=== PATIENT | female | born 1975 | race Caucasian/White ===

== ENCOUNTER 2024-09-26 05:01 | Day surgery (SDC) | payer BC ==
[2024-09-25 10:11] VITALS: BMI 27.9
[2024-09-26] MEDS: IOHEXOL 180 MG/1 ML ML IJ ONE
[2024-09-26] MEDS: LIDO 2%/EPI 1:200000 PRESRVFRE (20 ML SDVIAL) INF ONE
[2024-09-26] MEDS ORDERED: DEXAMETHASONE SOD PHOSPHATE 10 MG/1 ML VIAL ONE (07:16)
[2024-09-26] MEDS ORDERED: LIDOCAINE HCL/PF 1% SDV 5ML VIAL ONE (07:16)
[2024-09-26 08:51] VITALS: RESP 16
[2024-09-26] MEDS ORDERED: ACETAMINOPHEN 500 MG TABLET (FP) PO PRN (09:10)
[2024-09-26] MEDS: LIDOCAINE HCL 1% PRESERVATIVE FREE - 30ML VIAL IJ ONE ×2 (09:56)
[2024-09-26] MEDS: DEXAMETHASONE SOD PHOSPHATE 10 MG/1 ML VIAL IVPUSH ONE ×2 (09:57)
[2024-09-26 10:41] VITALS: TEMP 97.6
[2024-09-26 13:49] VITALS: BP 125/75; PULSE 92
== END 2024-09-26 10:40 | disposition home or self-care (01) ==
LOC: JASU-SURG 05:01
PROVIDERS: ATTEND Pain Medicine Pain Medicine
PROC: 3E0R3BZ Introduction of Anesthetic Agent into Spinal Canal, Percutaneous Approach (ICD-10-PCS; 2024-09-26)
PROC: 3E0R33Z Introduction of Anti-inflammatory into Spinal Canal, Percutaneous Approach (ICD-10-PCS; principal; 2024-09-26 10:00)
DX: M54.16 Radiculopathy, lumbar region (principal)
CPT/HCPCS: 76000-TC-FY; 81025; J1100

== ENCOUNTER 2024-10-17 04:13 | Day surgery (SDC) | payer BC ==
[2024-10-16 20:16] VITALS: BMI 27.9
[2024-10-17] MEDS ORDERED: BUPIVACAINE HCL/PF 0.5% (5MG/ML) 10 ML VIAL ONE (07:29)
[2024-10-17 15:20] VITALS: RESP 18
[2024-10-17] MEDS: LIDOCAINE HCL 1% PRESERVATIVE FREE - 30ML VIAL NR ONE (17:24)
[2024-10-17] MEDS: IOHEXOL 180 MG/1 ML ML IJ ONE (17:25)
[2024-10-17] MEDS: DEXAMETHASONE SOD PHOSPHATE 10 MG/1 ML VIAL IVPUSH ONE (17:37)
[2024-10-17 18:26] VITALS: BP 137/78; PULSE 96; TEMP 98
== END 2024-10-17 18:00 | disposition home or self-care (01) ==
LOC: JASU-SURG 04:13
PROVIDERS: ATTEND Pain Medicine Pain Medicine
PROC: 3E023BZ Introduction of Anesthetic Agent into Muscle, Percutaneous Approach (ICD-10-PCS; 2024-10-17)
PROC: 3E0233Z Introduction of Anti-inflammatory into Muscle, Percutaneous Approach (ICD-10-PCS; principal; 2024-10-17 17:00)
DX: M47.816 Spondylosis without myelopathy or radiculopathy, lumbar region (principal); M54.16 Radiculopathy, lumbar region; M66.18 Rupture of synovium, other site
CPT/HCPCS: 76000-TC-FY; 81025; J1100

== ENCOUNTER 2024-11-28 04:23 | Day surgery (SDC) | payer BC ==
[2024-11-19 11:46] VITALS: BMI 29.0
[2024-11-28] MEDS ORDERED: MIDAZOLAM HCL 2 MG/2 ML SINGLE DOSE VIAL ONE (10:04)
[2024-11-28 10:52] VITALS: TEMP 98.3
[2024-11-28 11:25] VITALS: RESP 16
[2024-11-28 11:31] VITALS: BP 106/64; PULSE 78
== END 2024-11-28 11:33 | disposition home or self-care (01) ==
LOC: JASU-ENDO 04:23
PROVIDERS: ATTEND Internal Medicine Gastroenterology
PROC: 0DB68ZX Excision of Stomach, Via Natural or Artificial Opening Endoscopic, Diagnostic (ICD-10-PCS; 2024-11-28)
PROC: 0DB78ZX Excision of Stomach, Pylorus, Via Natural or Artificial Opening Endoscopic, Diagnostic (ICD-10-PCS; 2024-11-28)
PROC: 0DJD8ZZ Inspection of Lower Intestinal Tract, Via Natural or Artificial Opening Endoscopic (ICD-10-PCS; principal; 2024-11-28 10:00)
DX: Z12.11 Encounter for screening for malignant neoplasm of colon (principal); K55.20 Angiodysplasia of colon without hemorrhage; K44.9 Diaphragmatic hernia without obstruction or gangrene; K29.50 Unspecified chronic gastritis without bleeding; Z83.719 Family history of colon polyps, unspecified
CPT/HCPCS: 81025; 88305-TC; 88342-TC